=== PATIENT | male | born 1955 ===

== ENCOUNTER 2019-08-30 06:00 | Outpatient (RCR) | payer BC, SELFPAY | END 2019-09-29 00:01 | LOC: GPT 06:00 | PROVIDERS: Visit Provider Orthopaedic Surgery | DX: S83.242D Other tear of medial meniscus, current injury, left knee, subsequent encounter (principal); X58.XXXD Exposure to other specified factors, subsequent encounter | CPT/HCPCS: 97110 ×2; 97112; 97116; 97164; 97530 ==

== ENCOUNTER 2022-11-22 06:00 | Outpatient (RCR) | payer MEDICARE, OTHER, SELFPAY | END 2022-11-27 23:59 | disposition home or self-care (01) | LOC: GPT 06:00 | PROVIDERS: Visit Provider Orthopaedic Surgery | DX: M23.303 Other meniscus derangements, unspecified medial meniscus, right knee (principal); M17.11 Unilateral primary osteoarthritis, right knee; M25.561 Pain in right knee | CPT/HCPCS: 97112; 97140; 97161; 97530 ==

== ENCOUNTER 2022-11-28 06:00 | Outpatient (RCR) | payer MEDICARE, OTHER, SELFPAY | END 2022-12-28 23:59 | disposition home or self-care (01) | LOC: GPT 06:00 | PROVIDERS: Visit Provider Orthopaedic Surgery | DX: Z47.89 Encounter for other orthopedic aftercare (principal); M94.261 Chondromalacia, right knee | CPT/HCPCS: 97110; 97112; 97530 ==